=== PATIENT | female | born 1995 | race African-American/Black ===

== ENCOUNTER 2016-03-23 23:25 | Emergency (ER) | payer OTHER ==
[~2016-03-23] VITALS: Ht 167.6 cm; Wt 105.2 kg
[~2016-03-23 23:25] MED LIST: ACYCLOVIR 400400 MG PO; BENADRYL25 MG PO; CLARITIN10 MG PO; EPIPEN 2-P0.3 MG/0.3 IM; FLONASE 0.05%50 MCG NASAL; IRON325 MG PO; LOESTRIN FE 1-1 EACH PO; NAPROSYN500 MG PO; NOHOMEMEDICATIONS; ONDANSETRON HCL4 M2 PO; PEPCID40 MG PO; PREDNISONE 10 M10 MG PO; PREDNISONE 20 M20 M1 PO; TYLENOL COLD &1 EACH PO; VITAMIN E400 UNIT PO; ZANTAC 150MG T150 M1 PO; ZOFRAN ODT4 MG DISSOLVE; ZOFRAN ODT4 MG PO
[2016-03-24] MEDS ORDERED: NAPROSYN500 MG PO (00:09)
== END 2016-03-24 00:15 | disposition home or self-care (01) ==
LOC: ER 23:25
DX: S93.602A Unspecified sprain of left foot, initial encounter (principal); J45.909 Unspecified asthma, uncomplicated; Z91.010 Allergy to peanuts; W01.0XXA Fall on same level from slipping, tripping and stumbling without subsequent striking against object, initial encounter; Y93.89 Activity, other specified; Y92.89 Other specified places as the place of occurrence of the external cause; Y99.9 Unspecified external cause status

== ENCOUNTER 2016-04-10 23:13 | Emergency (ER) | payer OTHER ==
[~2016-04-10] VITALS: Ht 167.6 cm; Wt 104.3 kg
[2016-04-11 00:17] LABS: ABSOLUTE NEUTROPHILS 4.1 thou/uL (1.4-8.2); BASOPHILS 0.6 % (0.0-2.0); EOSINOPHILS 4.2 % (0.0-3.0); HEMATOCRIT 35.1 % (37.0-47.0); HEMOGLOBIN 11.4 gm/dL (12.0-15.0); LYMPHOCYTES 33.3 % (24.0-44.0); MCH 23.1 pg (26.0-34.0); MCHC 32.4 % (28.0-37.0); MCV 71.4 fL (80.0-100.0); MONOCYTES 9.8 % (1.0-8.0); PLATELET COUNT 305 thou/uL (150-400); POLYS 52.1 % (36.0-66.0); RBC 4.92 mil/uL (4.20-5.00); RDW 15.2 % (10.5-14.5); WBC 7.8 thou/uL (4.0-11.0)
[2016-04-11 00:22] LABS: MANUAL DIFF NO
[2016-04-13 14:12] LABS: CHLAMYDIA TRACHOMATIS-PCR Negative (Negative); NEISSERIA GONORRHEA-PCR Negative (Negative)
== END 2016-04-11 01:41 | disposition home or self-care (01) ==
LOC: ER 23:13
PROVIDERS: Emergency Medicine; Physician Assistant
DX: N89.8 Other specified noninflammatory disorders of vagina (principal); N93.8 Other specified abnormal uterine and vaginal bleeding; J45.909 Unspecified asthma, uncomplicated; K59.09 Other constipation; Z91.010 Allergy to peanuts

== ENCOUNTER 2017-07-17 18:23 | Emergency (ER) | payer OTHER ==
[~2017-07-17] VITALS: Ht 167.6 cm; Wt 104.3 kg
[2017-07-17] MEDS ORDERED: OXYCODONE IR PO (19:02)
[2017-07-17] MEDS ORDERED: MEDROLDOSEPACK PO (19:03)
[2017-07-17] MEDS ORDERED: DOXYCYCLINE 10100 M1 PO (19:03)
[2017-07-17 19:39] LABS: URINE BILIRUBIN NEGATIVE (Negative); URINE BLOOD NEGATIVE (Negative); URINE CLARITY SL CLOUDY; URINE COLOR YELLOW; URINE GLUCOSE-RANDOM* NEGATIVE (Negative); URINE KETONES NEGATIVE (Negative); URINE LEUKOCYTES NEGATIVE (Negative); URINE NITRITE NEGATIVE (Negative); URINE PROTEIN (DIPSTICK) NEGATIVE (Negative)
[2017-07-17 19:47] LABS: ABSOLUTE NEUTROPHILS 4.1 thou/uL (1.4-8.2); BASOPHILS 0.9 % (0.0-2.0); EOSINOPHILS 3.3 % (0.0-3.0); HEMATOCRIT 35.7 % (37.0-47.0); HEMOGLOBIN 11.2 gm/dL (12.0-15.0); LYMPHOCYTES 41.7 % (24.0-44.0); MCH 21.9 pg (26.0-34.0); MCHC 31.5 g/dL (28.0-37.0); MCV 69.6 fL (80.0-100.0); MONOCYTES 7.5 % (1.0-8.0); PLATELET COUNT 535 thou/uL (150-400); POLYS 46.6 % (36.0-66.0); RBC 5.13 mil/uL (4.20-5.00); RDW 22.5 % (10.5-14.5); WBC 8.7 thou/uL (4.0-11.0)
[2017-07-17 19:54] LABS: CALCIUM 10.5 mg/dL (8.5-10.1); CREATININE 0.9 mg/dL (0.6-1.0); POTASSIUM 4.1 mmol/L (3.5-5.1)
[2017-07-17] MEDS ORDERED: NORFLEX100 MG PO (20:01)
[2017-07-17] MEDS ORDERED: NAPROSYN500 MG PO (20:01)
[2017-07-17 20:18] LABS: ANISOCYTOSIS 2+; HYPOCHROMASIA 2+; MICROCYTES 2+
[2017-07-17 20:19] LABS: POLYCHROMASIA OCCASIONAL
== END 2017-07-17 20:15 | disposition home or self-care (01) ==
LOC: ER 18:23
PROVIDERS: Physician Assistant
DX: M62.830 Muscle spasm of back (principal); J45.909 Unspecified asthma, uncomplicated; Z91.010 Allergy to peanuts